=== PATIENT | male | born 1965 | race Caucasian/White ===

== ENCOUNTER 2019-03-18 08:20 | Inpatient (IN) ==
[2019-03-18] MEDS ORDERED: CeFAZolin Syr 2,000MG/20 ML 2,000 MG/20 ML SYRINGE IVPB ONE (08:48)
[2019-03-18] MEDS ORDERED: *HR* Rocuronium Bromide 50 MG/5 ML VIAL ONE (08:51)
[2019-03-18] MEDS ORDERED: Ondansetron 4 MG/2 ML VIAL ONE (08:51)
[2019-03-18] MEDS ORDERED: Dexamethasone 4 MG/ML VIAL ONE (08:51)
[2019-03-18] MEDS ORDERED: *HR* Midazolam HCl 2 MG/2 ML VIAL ONE (08:51)
[2019-03-18] MEDS ORDERED: *HR* FentaNYL (PF) 100 MCG/2 ML VIAL ONE ×2 (08:51→11:34)
[2019-03-18] MEDS ORDERED: *HR* Propofol 200 MG/20 ML VIAL IVP ONE (08:51)
[2019-03-18] MEDS ORDERED: Lidocaine -MPF 4% 5 ML AMPUL ONE (08:51)
[2019-03-18] MEDS ORDERED: Lidocaine -MPF 2% 2 ML VIAL ONE (08:51)
[2019-03-18] MEDS ORDERED: Ringers Solution, Lactated 1,000 ML IVC SCH (09:00)
[2019-03-18] MEDS ORDERED: Famotidine 20 MG/2 ML VIAL IVP ONE (09:25)
[2019-03-18] MEDS ORDERED: Acetaminophen IV 1,000 MG/100 ML INFUS..BTL IVPB ONE (09:25)
[2019-03-18] MEDS ORDERED: traMADol 50 MG TABLET PO ONE (09:25)
[2019-03-18] MEDS ORDERED: Gabapentin 300 MG CAPSULE PO ONE (09:25)
--- NOTE | 2019-03-18 09:28 | Anesthesia Evaluation PreOp ---
Date of Encounter: 03/18/19 Time of Encounter: 09:25 - Past History Planned Operation: Bronchoscopy Robotic Left Upper Lobectomy Cardiac History: HTN Pulmonary History: Denies Any Significant HX FUR DRUMMER History: Denies Any Significant HX Other Medical History: Denies Any Significant HX Alcohol Use: none Drug use: none Medications and Allergies ALPRAZolam [Xanax 0.25 MG Tablet] 0.25 mg PO TID 03/18/19 [History] Cyclobenzaprine [Flexeril] 10 mg PO TID 03/18/19 [History] Lisinopril [Zestril] 5 mg PO DAILY 03/18/19 [History] Allergy/AdvReac Type Severity Reaction Status Date / Time tetracycline [Tetracycline] Allergy Hives Verified 11/12/17 10:28 - Meds/Allergy Pre-op Review Medications Reviewed: Yes Allergies Reviewed: Yes Beta Blockers on Current Med List: No Anesthesia Results - Labs Laboratory Tests 03/08/19 03/08/19 12:43 12:43 Hgb 14.3 Hct 41.4 Plt Count 295 Sodium 140 Potassium 3.8 BUN 14 Creatinine 1.08 - Imaging EKG: report reviewed (SB) Anesthesia Exam O2 Sat Height 1.73 m Height 1.73 m Weight 60.781 kg Weight 60.781 kg O2 Sat by Pulse Oximetry 96 Vital Signs Temp Pulse Resp BP Pulse Ox 98.0 F 83 18 111/73 96 03/18/19 08:44 03/18/19 08:44 03/18/19 08:44 03/18/19 08:44 03/18/19 08:44 Height: 5'9 Weight: 133 lbs NPO (# of Hours): MN Pain Scale: 0 - HEENT Pupil (Motor): Pupils equal, EOMI Mallampati: II Teeth: Normal Oral Opening: Greater than 3 - FUR DRUMMER LOC: Oriented FUR DRUMMER Motor: Normal RUE, Normal LUE, Normal RLE, Normal LLE, Normal Face FUR DRUMMER Sensory: Normal: RUE, LUE, RLE, LLE, Face - Cardiac Rhythm: Regular Murmur: None JVD: No Carotid Bruit: No - Pulmonary Breath Sounds: bilateral Clear Respiratory Effort: Symmetrical Anesthesia Assess/Plan ASA Score: 2 Level of consciousness: Cooperative, Oriented Anesthetic Plan: General Autologous Blood: No Monitoring Plan: Standard Monitors Recovery Plan: PACU (Discussed GA, agrees to proceed)
--- NOTE | 2019-03-18 09:53 | History & Physical Report ---
Date of Encounter: 03/18/19 Time of Encounter: 09:53 24 Hour HP Update - Instructions Instructions: If the History and Physical is less than 30 days old and was completed prior to A.M. admission and or procedure and has NOT been updated on calendar day of procedure please complete this update prior to performing procedure. - Update Patient reports changes in Medical Condition: No Changes in examination, assessment, or condition: No Changes in Medication: No Preop tests/diagnostics Reviewed: Yes Pre-Op MRSA Screen: Negative Surgery Remains Indicated: Yes Consent for Planned Operative Procedure(s) Verified: Yes - Pre-Operative Checklist Preoperative Checklist Indicated: Yes Prophylactic Antibiotic Ordered: Yes Home Medications Include Beta David: No Beta David Taken Today (Day of Surgery): No Beta David Taken Yesterday (Day Prior to Surgery): No Is VTE Prophylaxis Indicated?: Yes
[2019-03-18] MEDS ORDERED: *HR* Succinylcholine 200 MG/10 ML VIAL IVP ONE (10:33)
[2019-03-18] MEDS ORDERED: *HR* OxyCODONE Immed Rel 5 MG TABLET PO PRN (11:14)
[2019-03-18] MEDS ORDERED: *HR* Promethazine 25 MG/ML VIAL IVP PRN ×2 (11:14→17:57)
[2019-03-18] MEDS ORDERED: *HR* HYDROmorphone (PF) 1 MG/ML SYRINGE IVP PRN (11:14)
[2019-03-18] MEDS ORDERED: Ondansetron 4 MG/2 ML VIAL IVP ONE (11:14)
[2019-03-18] MEDS ORDERED: *HR* HYDROMORPHONE 2 MG/ML VIAL ONE (12:28)
[2019-03-18] MEDS ORDERED: Ketorolac 30 MG/ML VIAL ONE (12:51)
--- NOTE | 2019-03-18 13:19 | Operative Note ---
Date of procedure: 03/18/19 Pre-op diagnosis: c34.12 Post-op diagnosis: same Procedure: stagiong bronchoscopy, robotic left upper lobectomy, mediastinal node dissection Anesthesia: GETA Local Anesthetics: 0.5% Sensorcaine HCL SubQ (cc) Co-Surgeon: Jonnathan Szymanski Was there an server assistant present: No Estimated blood loss (cc): 25 Specimen: lobe, nodes [id number] Condition: stable Disposition: PACU Procedure in Detail: Patient was brought to the operating room and placed on the operating table in the supine position. After undergoing general anesthesia with sequential compressive devices on bilateral lower extremities and perioperative antibiotics on board staging bronchoscopy demonstrated normal pink mucosa throughout the tracheobronchial tree without any endoluminal masses or extrinsic compression of the trachea je mainstem lobar bronchi that would preclude surgery. Patient was placed on the operating table in the right lateral decubitus position with care to pad all pressure points. Prepped and draped in the draped in the usual sterile fashion. Thoracoscopy ports were placed in the da Vivi robot was docked. In sequence artery vein bronchus were completed with endothoracic staplers. The inferior pulmonary ligament was mobilized the lobe was removed lymph nodes were removed from stations 9 and 12. There were no nodes 10 or 7 no nodes at 645. On the lobectomy specimen there were numerous peribronchial nodes to be dissected by pathology. Hemostasis and pneumostasis were excellent paravertebral nerve blocks were performed 3. A 28-Chinese chest tube placed through the most anterior thoracoscopy incision were secured in place with a #2 Vicryl suture. The incisions were closed with 0 Vicryl and 4-0 Monocryl subcuticular stitches with dressings consisting of Steri-Strips and sterile gauze. Patient was extubated taken to the recovery room breathing spontaneously and hemodynamically stable.
--- NOTE | 2019-03-18 13:48 | Anesthesia Evaluation Post Op ---
Date of Encounter: 03/18/19 Time of Encounter: 13:47 - Vital Signs Vital Signs: Vital Signs/O2 Sat, Most Current Temp Pulse Resp BP Pulse Ox 97.7 F 79 14 129/75 100 03/18/19 13:18 03/18/19 13:38 03/18/19 13:38 03/18/19 13:38 03/18/19 13:38 - Lungs Lungs: Clear Ascult./Percussion - Airway Airway: Non-obstructed - Cardiovascular Regular Rate - Mental Status Mental Status: Asleep with brisk response to light stimulation - Pain Pain Scale: 0 Pain Scale used: Numeric (1 - 10) - Nausea Vomiting Nausea Vomiting: Not Present - Hydration Hydration: Ice chips, Has not voided - Discharge PostOp Status: Transfer Patient to floor
[2019-03-18] MEDS ORDERED: Naloxone 0.4 MG/ML INJ IVP PRN (14:17)
[2019-03-18] MEDS: ALPRAZolam 0.25 MG TABLET PO SCH ×2 (15:06→20:44)
[2019-03-18] MEDS: 0.9 % Sodium Chloride 1,000 ML IVC SCH (15:06)
[2019-03-18] MEDS: *HR* Heparin 5,000 UNIT/ML VIAL SQ SCH ×2 (15:06→20:43)
[2019-03-18] MEDS: Gabapentin 300 MG CAPSULE PO SCH ×2 (15:06→20:45)
[2019-03-18] MEDS: Ondansetron 4 MG/2 ML VIAL IVP PRN ×2 (15:17→20:44)
[2019-03-18] MEDS: Ipratropium/Albuterol Neb 3 ML IH SCH ×3 (16:05→23:12)
[2019-03-18] MEDS: Ketorolac 15 MG/ML VIAL IVP SCH (17:45)
[2019-03-18] MEDS: Sennosides/Docusate Sodium TABLET PO SCH (20:44)
[2019-03-18] MEDS: Famotidine 20 MG TABLET PO SCH (20:45)
[2019-03-19] MEDS: Ketorolac 15 MG/ML VIAL IVP SCH ×4 (00:17→18:01)
[2019-03-19] MEDS: Ipratropium/Albuterol Neb 3 ML IH SCH ×6 (03:36→23:53)
[2019-03-19] MEDS: 0.9 % Sodium Chloride 1,000 ML IVC SCH ×2 (04:30→17:31)
[2019-03-19] MEDS: *HR* Heparin 5,000 UNIT/ML VIAL SQ SCH ×3 (06:35→19:59)
[2019-03-19] MEDS: Famotidine 20 MG TABLET PO SCH ×2 (07:26→20:00)
[2019-03-19] MEDS: Sennosides/Docusate Sodium TABLET PO SCH ×2 (07:26→20:00)
[2019-03-19] MEDS: ALPRAZolam 0.25 MG TABLET PO SCH ×3 (07:26→20:00)
[2019-03-19] MEDS: Gabapentin 300 MG CAPSULE PO SCH ×3 (07:27→19:59)
--- NOTE | 2019-03-19 09:21 | Cardiothoracic Progress Note ---
Date of Encounter: 03/19/19 Time of Encounter: 09:20 - Assessment and plan (1) Malignant neoplasm of upper lobe, left bronchus or lung Current Visit: Yes Status: Acute The assessment and plan as outlined above was discussed with the patient and/or family members who expressed understanding and agreement. All questions were answered. order labs Vital Signs, Last 4 Hours Temp Pulse Resp BP Pulse Ox 03/19/19 07:42 17 97 03/19/19 06:59 98.3 F 93 18 100/67 99 Oxgyen Flow Rate Oxygen Flow Rate (LPM) 2 Clinical Data, last 8 Hours Output, Chest Tube Drainage 0 Amount [Left Mediastinal #1] Output, Chest Tube Drainage 0 Amount [Left Mediastinal #1] Output, Urine Amount 300 Output, Urine Amount 200 Weight 03/17/19 03/18/19 03/19/19 23:59 23:59 23:59 Weight 60.781 kg - Physical Examination General: Conversant, No Apparent Distress, Well developed, Well nourished HEENT: Atraumatic, Normocephaly Cardiac: Reg Rate and Rhythm, Normal S1 and S2 Incision: No signs of infection, Dry/intact dressing Chest tubes: Minimal drainage, Air leak Lungs: Normal Breath Sounds Neuro: Alert and responsive, No focal deficits noted, Cranial nerves intact, Motor nerves intact Vascular: Normal capillary refill Abdomen: Soft Extremities: No Clubbing, No Cyanosis, No Edema, Normal Pulses - Imaging Chest Xray: image reviewed Consult Discharge Plan - Plan Referrals: Scott Shah MD [Primary Care Provider] -
[2019-03-19 09:44] LABS: Hematocrit 35.5 % (37.5-50.1); Hemoglobin 12.2 g/dL (12.9-16.9); Mean Corpuscular HGB Conc 34.4 g/dL (31.6-35.5); Mean Corpuscular Hemoglobin 30.7 pg (28.0-33.3); Mean Corpuscular Volume 89.2 fL (83.0-100.0); Mean Platelet Volume 8.9 fL (9.4-12.4); Platelet Count 205 K/mcL (140-400); Red Blood Count 3.98 M/mcL (4.19-5.50); Red Cell Distribution Width 12.3 % (11.5-14.5); White Blood Count 8.9 K/mcL (4.3-11.1)
[2019-03-19 10:03] LABS: BUN/Creatinine Ratio 15 (6-26); Blood Urea Nitrogen 20 mg/dL (6-20); Carbon Dioxide 27 mEq/L (23-29); Chloride 104 mEq/L (98-107); Glucose 131 mg/dL (70-105); Magnesium 1.9 mg/dL (1.6-2.6); Osmolality,Calculated 290 (280-300); Potassium 4.1 mEq/L (3.5-5.1); Sodium 138 mEq/L (136-145); eGFR For African Americans > 60 (> 60); eGFR For Non-African Americans 56 (> 60)
[2019-03-20] MEDS: Ketorolac 15 MG/ML VIAL IVP SCH ×4 (00:30→17:06)
[2019-03-20] MEDS: Ipratropium/Albuterol Neb 3 ML IH SCH ×6 (03:44→23:54)
[2019-03-20] MEDS: *HR* Heparin 5,000 UNIT/ML VIAL SQ SCH ×3 (06:20→20:08)
[2019-03-20] MEDS: 0.9 % Sodium Chloride 1,000 ML IVC SCH ×2 (06:21→15:34)
[2019-03-20] MEDS: ALPRAZolam 0.25 MG TABLET PO SCH ×3 (07:25→20:08)
[2019-03-20] MEDS: Gabapentin 300 MG CAPSULE PO SCH ×3 (07:25→20:08)
[2019-03-20] MEDS: Famotidine 20 MG TABLET PO SCH ×2 (07:25→20:07)
[2019-03-20] MEDS: Sennosides/Docusate Sodium TABLET PO SCH ×2 (07:25→20:07)
--- NOTE | 2019-03-20 09:00 | Cardiothoracic Progress Note ---
Date of Encounter: 03/20/19 Time of Encounter: 08:59 - Assessment and plan (1) Malignant neoplasm of upper lobe, left bronchus or lung Current Visit: Yes Status: Acute The assessment and plan as outlined above was discussed with the patient and/or family members who expressed understanding and agreement. All questions were answered. continue chest tube dulcolax supp Vital Signs, Last 4 Hours Temp Pulse Resp BP Pulse Ox 03/20/19 07:51 16 98 03/20/19 07:21 98.2 F 82 16 126/85 99 Oxgyen Flow Rate Oxygen Flow Rate (LPM) 2 Clinical Data, last 8 Hours Output, Chest Tube Drainage 2 Amount [Left Mediastinal #1] Output, Chest Tube Drainage 51 Amount [Left Mediastinal #1] Weight 03/18/19 03/19/19 03/20/19 23:59 23:59 23:59 Weight 60.781 kg 66.1 kg - Physical Examination General: Conversant, No Apparent Distress, Well developed, Well nourished HEENT: Atraumatic Cardiac: Reg Rate and Rhythm, Normal S1 and S2 Incision: No signs of infection, Dry/intact dressing, Open to air Chest tubes: Minimal drainage, Air leak, Other (air leak decreasing ) Lungs: Normal Breath Sounds Neuro: Alert and responsive, No focal deficits noted, Cranial nerves intact, Motor nerves intact Abdomen: Soft, Non-tender, Other (hypoactive ) Extremities: No Clubbing, No Edema - Labs 03/19/19 09:31 03/19/19 09:31 Lab Results, Last 24 hours 03/19/19 03/19/19 09:31 09:31 WBC 8.9 Hgb 12.2 L Hct 35.5 L Plt Count 205 Sodium 138 Potassium 4.1 Chloride 104 Carbon Dioxide 27 BUN 20 Creatinine 1.34 H Glucose 131 H Calcium 9.0 Magnesium 1.9 - Imaging Chest Xray: image reviewed Consult Discharge Plan - Plan Referrals: Scott Shah MD [Primary Care Provider] -
[2019-03-20] MEDS: Bisacodyl 10 MG RECTAL SUPPOSITORY RC SCH (13:52)
[2019-03-20] MEDS: *HR* HYDROcodone/Acet 5/325 mg TABLET PO PRN (20:08)
[2019-03-21] MEDS: Ketorolac 15 MG/ML VIAL IVP SCH ×3 (00:18→11:42)
[2019-03-21] MEDS: Ipratropium/Albuterol Neb 3 ML IH SCH ×5 (03:57→19:47)
[2019-03-21] MEDS: *HR* Heparin 5,000 UNIT/ML VIAL SQ SCH ×3 (06:34→20:33)
[2019-03-21] MEDS: Gabapentin 300 MG CAPSULE PO SCH ×3 (07:42→20:33)
[2019-03-21] MEDS: Famotidine 20 MG TABLET PO SCH ×2 (07:42→20:33)
[2019-03-21] MEDS: Sennosides/Docusate Sodium TABLET PO SCH ×2 (07:42→20:33)
[2019-03-21] MEDS: ALPRAZolam 0.25 MG TABLET PO SCH ×3 (07:42→20:33)
[2019-03-21] MEDS: 0.9 % Sodium Chloride 1,000 ML IVC SCH (07:43)
[2019-03-21] MEDS: Bisacodyl 10 MG RECTAL SUPPOSITORY RC SCH (07:44)
--- NOTE | 2019-03-21 12:41 | Cardiothoracic Progress Note ---
Date of Encounter: 03/21/19 Time of Encounter: 12:39 - Assessment and plan (1) Malignant neoplasm of upper lobe, left bronchus or lung Current Visit: Yes Status: Acute The assessment and plan as outlined above was discussed with the patient and/or family members who expressed understanding and agreement. All questions were answered. continue chest tube stop ivf. stop toradol Vital Signs, Last 4 Hours Temp Pulse Resp BP Pulse Ox 03/21/19 11:12 98.7 F 108 18 106/71 98 03/21/19 11:11 18 97 Oxgyen Flow Rate Oxygen Flow Rate (LPM) 0 Clinical Data, last 8 Hours Output, Chest Tube Drainage 10 Amount [Left Mediastinal #1] Output, Chest Tube Drainage 0 Amount [Left Mediastinal #1] Output, Urine Amount 250 Weight 03/19/19 03/20/19 03/21/19 23:59 23:59 23:59 Weight 66.1 kg 67.9 kg - Physical Examination General: Conversant, No Apparent Distress, Well developed, Well nourished HEENT: Atraumatic, Normocephaly Cardiac: Reg Rate and Rhythm, Normal S1 and S2 Incision: No signs of infection, Dry/intact dressing, Open to air Chest tubes: Minimal drainage, Air leak Lungs: Normal Breath Sounds Neuro: Alert and responsive, No focal deficits noted, Cranial nerves intact, Motor nerves intact Abdomen: Soft, Non-tender, Other (bm after mg citrate yesterday ) Extremities: No Clubbing, No Cyanosis, No Edema - Labs 03/19/19 09:31 03/19/19 09:31 Consult Discharge Plan - Plan Referrals: Jonnathan Szymanski MD [Partnered Physician] - Scott Shah MD [Primary Care Provider] - 03/29/19 9:15 am
[2019-03-22] MEDS: Ipratropium/Albuterol Neb 3 ML IH SCH ×4 (00:01→11:01)
[2019-03-22] MEDS: *HR* HYDROcodone/Acet 5/325 mg TABLET PO PRN (06:57)
[2019-03-22] MEDS: *HR* Heparin 5,000 UNIT/ML VIAL SQ SCH ×2 (07:01→15:08)
[2019-03-22] MEDS: Gabapentin 300 MG CAPSULE PO SCH ×2 (07:32→15:07)
[2019-03-22] MEDS: ALPRAZolam 0.25 MG TABLET PO SCH ×2 (07:33→15:07)
[2019-03-22] MEDS: Sennosides/Docusate Sodium TABLET PO SCH (07:33)
[2019-03-22] MEDS: Famotidine 20 MG TABLET PO SCH (07:33)
[2019-03-22] MEDS: Bisacodyl 10 MG RECTAL SUPPOSITORY RC SCH (07:33)
[2019-03-22 11:01] VITALS: BP 104/72
--- NOTE | 2019-03-22 12:15 | Discharge Summary ---
Orders not resulted at time of discharge: Pending orders 03/18/19 11:33 Surgical Pathology [PTH] Routine Date of Encounter: 03/22/19 Time of Encounter: 12:13 - Discharge Diagnosis (1) Malignant neoplasm of upper lobe, left bronchus or lung Priority: Primary Status: Acute - Hospital Course Hospital course: Mr. Chaney is a 53 year old male - Time Spent with Patient Total time spent providing and/or coordinating discharge services: - Discharge Medications Prescriptions: No Action Lisinopril [Zestril] 5 mg PO DAILY Cyclobenzaprine [Flexeril] 10 mg PO TID ALPRAZolam [Xanax 0.25 MG Tablet] 0.25 mg PO TID Home Medications: ALPRAZolam [Xanax 0.25 MG Tablet] 0.25 mg PO TID 03/18/19 [History] Cyclobenzaprine [Flexeril] 10 mg PO TID 03/18/19 [History] Lisinopril [Zestril] 5 mg PO DAILY 03/18/19 [History] Allergies/Adverse Reactions: Allergy/AdvReac Type Severity Reaction Status Date / Time tetracycline [Tetracycline] Allergy Hives Verified 11/12/17 10:28 Date of admission: 03/18/19 13:46 Primary care physician: Scott Shah MD Procedure(s) Performed: bronchoscopy, left robotic upper lobectomy and lymph node dissection Discharging clinician: Jonnathan Szymanski Anticipated date of discharge: 03/22/19 Physical Examination Vital Signs, Last 4 Hours Temp Pulse Resp BP Pulse Ox 03/22/19 11:03 16 96 03/22/19 10:58 98.2 F 97 16 104/72 96 General: Conversant, No Apparent Distress, Well developed, Well nourished HEENT: Atraumatic, Normocephaly Cardiac: Reg Rate and Rhythm, Normal S1 and S2 Lungs: Normal Breath Sounds Neuro: Alert and responsive, No focal deficits noted, Cranial nerves intact, Motor nerves intact Vascular: Normal capillary refill Abdomen: Soft, Non-tender - Patient Status Disposition: Home, Self-Care Condition: Good Functional capacity at discharge: independent ambulation Overall status at discharge: patient is progressing back to baseline - Discharge Instructions Follow Up With: Jonnathan Szymanski MD [Partnered Physician] - 03/29/19 10:45 am Scott Shah MD [Primary Care Provider] - 03/29/19 7:30 am - Diet and Activity Activity: other (no driving, no lifting more than 20 pounds, change gauze every other day. )
== END 2019-03-22 16:03 | disposition home or self-care (01) | DRG 120 ==
LOC: SAMDAY 08:20 → 2NNU 13:46
PROVIDERS: ADMIT Thoracic Surgery (Cardiothoracic Vascular Surgery); ATTEND Thoracic Surgery (Cardiothoracic Vascular Surgery)

== ENCOUNTER 2019-04-28 06:06 | Inpatient (IN) ==
[2019-04-28] MEDS ORDERED: Albuterol 2.5 MG/3 ML NEBULIZER IH PRN (06:21)
[2019-04-28] MEDS ORDERED: CeFAZolin Syr 2,000MG/20 ML 2,000 MG/20 ML SYRINGE IVPB ONE (06:21)
[2019-04-28] MEDS ORDERED: Ringers Solution, Lactated 1,000 ML IVC SCH (06:30)
[2019-04-28] MEDS ORDERED: *HR* Labetalol 20 MG/4 ML SYRINGE IVP PRN (06:42)
[2019-04-28] MEDS ORDERED: EPHEDrine 50 MG/ML VIAL ONE (06:42)
[2019-04-28] MEDS ORDERED: *HR* HYDROmorphone (PF) 1 MG/ML SYRINGE IVP PRN (06:42)
[2019-04-28] MEDS ORDERED: *HR* Meperidine 25 MG/ML SYRINGE IVP PRN (06:42)
[2019-04-28] MEDS ORDERED: *HR* Promethazine 25 MG/ML VIAL IVP PRN (06:42)
[2019-04-28] MEDS ORDERED: *HR* Phenylephrine 10 MG/ML VIAL ONE (06:42)
[2019-04-28] MEDS ORDERED: Ondansetron ODT 4 MG TAB.RAPDIS SL ONE (06:42)
[2019-04-28] MEDS ORDERED: *HR* Midazolam HCl 2 MG/2 ML VIAL IVP PRN (06:42)
[2019-04-28] MEDS ORDERED: *HR* OxyCODONE Immed Rel 5 MG TABLET PO PRN ×2 (06:42→13:43)
[2019-04-28] MEDS ORDERED: *HR* FentaNYL (PF) 100 MCG/2 ML VIAL IVP PRN (06:42)
[2019-04-28] MEDS ORDERED: diazePAM 5 MG TABLET PO ONE (06:42)
[2019-04-28] MEDS ORDERED: cloNIDine HCl 0.1 MG TABLET PO ONE (06:42)
[2019-04-28] MEDS ORDERED: Acetaminophen IV 1,000 MG/100 ML INFUS..BTL IVPB ONE (06:42)
[2019-04-28] MEDS ORDERED: Ketorolac 30 MG/ML VIAL ONE (06:46)
[2019-04-28] MEDS ORDERED: *HR* Propofol 200 MG/20 ML VIAL IVP ONE (06:47)
[2019-04-28] MEDS ORDERED: Lidocaine -MPF 2% 2 ML VIAL ONE (06:48)
[2019-04-28] MEDS ORDERED: Dexamethasone 4 MG/ML VIAL ONE (06:48)
[2019-04-28] MEDS ORDERED: Ondansetron 4 MG/2 ML VIAL ONE (06:48)
[2019-04-28] MEDS ORDERED: Lidocaine -MPF 4% 5 ML AMPUL ONE (06:48)
[2019-04-28] MEDS ORDERED: *HR* Succinylcholine 200 MG/10 ML VIAL IVP ONE (06:48)
[2019-04-28] MEDS ORDERED: *HR* Rocuronium Bromide 50 MG/5 ML VIAL ONE (06:48)
[2019-04-28] MEDS ORDERED: *HR* FentaNYL (PF) 100 MCG/2 ML VIAL ONE (08:34)
[2019-04-28] MEDS ORDERED: Naloxone 0.4 MG/ML INJ IVP PRN (10:08)
[2019-04-28] MEDS ORDERED: Ondansetron 4 MG/2 ML VIAL IVP PRN (10:08)
[2019-04-28] MEDS: *HR* HYDROcodone/Acet 5/325 mg TABLET PO PRN ×2 (10:28→17:13)
[2019-04-28] MEDS: 0.9 % Sodium Chloride 1,000 ML IVC SCH (11:47)
[2019-04-28] MEDS: Ketorolac 15 MG/ML VIAL IVP SCH ×3 (11:48→23:59)
[2019-04-28] MEDS: *HR* OxyCODONE Immed Rel 5 MG TABLET PO PRN ×2 (14:24→20:23)
[2019-04-28] MEDS: *HR* Heparin 5,000 UNIT/ML VIAL SQ SCH ×2 (15:03→22:40)
[2019-04-28] MEDS: ALPRAZolam 0.25 MG TABLET PO SCH ×2 (15:03→20:24)
[2019-04-28] MEDS: Gabapentin 300 MG CAPSULE PO SCH ×2 (15:04→20:24)
[2019-04-28] MEDS: Ipratropium/Albuterol Neb 3 ML IH SCH ×4 (16:29→23:16)
[2019-04-28] MEDS: Famotidine 20 MG TABLET PO SCH (20:24)
[2019-04-28] MEDS: Sennosides/Docusate Sodium TABLET PO SCH (20:24)
[2019-04-29] MEDS: 0.9 % Sodium Chloride 1,000 ML IVC SCH ×2 (01:21→11:13)
[2019-04-29 02:42] LABS: Hematocrit 36.8 % (37.5-50.1); Hemoglobin 12.7 g/dL (12.9-16.9); Mean Corpuscular HGB Conc 34.5 g/dL (31.6-35.5); Mean Corpuscular Hemoglobin 30.7 pg (28.0-33.3); Mean Corpuscular Volume 88.9 fL (83.0-100.0); Mean Platelet Volume 8.9 fL (9.4-12.4); Platelet Count 275 K/mcL (140-400); Red Blood Count 4.14 M/mcL (4.19-5.50); Red Cell Distribution Width 12.1 % (11.5-14.5); White Blood Count 9.6 K/mcL (4.3-11.1)
[2019-04-29 03:01] LABS: BUN/Creatinine Ratio 14 (6-26); Blood Urea Nitrogen 17 mg/dL (6-20); Calcium 8.9 mg/dL (8.6-10.3); Carbon Dioxide 24 mEq/L (23-29); Chloride 103 mEq/L (98-107); Glucose 126 mg/dL (70-105); Magnesium 1.8 mg/dL (1.6-2.6); Osmolality,Calculated 283 (280-300); Potassium 4.6 mEq/L (3.5-5.1); Sodium 135 mEq/L (136-145); eGFR For African Americans > 60 (> 60); eGFR For Non-African Americans > 60 (> 60)
[2019-04-29] MEDS: Ipratropium/Albuterol Neb 3 ML IH SCH ×6 (03:44→23:17)
[2019-04-29] MEDS: *HR* Heparin 5,000 UNIT/ML VIAL SQ SCH ×3 (06:35→21:40)
[2019-04-29] MEDS: Ketorolac 15 MG/ML VIAL IVP SCH ×3 (06:35→17:17)
[2019-04-29] MEDS: ALPRAZolam 0.25 MG TABLET PO SCH ×3 (07:28→21:40)
[2019-04-29] MEDS: Sennosides/Docusate Sodium TABLET PO SCH ×2 (07:28→21:40)
[2019-04-29] MEDS: *HR* OxyCODONE Immed Rel 5 MG TABLET PO PRN (07:28)
[2019-04-29] MEDS: Gabapentin 300 MG CAPSULE PO SCH ×3 (07:29→21:39)
[2019-04-29] MEDS: Famotidine 20 MG TABLET PO SCH ×2 (07:29→21:40)
[2019-04-29] MEDS: *HR* HYDROcodone/Acet 5/325 mg TABLET PO PRN (21:39)
[2019-04-30] MEDS: Ketorolac 15 MG/ML VIAL IVP SCH ×2 (00:16→06:06)
[2019-04-30] MEDS: Ipratropium/Albuterol Neb 3 ML IH SCH ×4 (03:42→19:00)
[2019-04-30] MEDS: *HR* Heparin 5,000 UNIT/ML VIAL SQ SCH (06:06)
[2019-04-30] MEDS: Famotidine 20 MG TABLET PO SCH (07:22)
[2019-04-30] MEDS: ALPRAZolam 0.25 MG TABLET PO SCH (07:22)
[2019-04-30] MEDS: Sennosides/Docusate Sodium TABLET PO SCH (07:22)
[2019-04-30] MEDS: Gabapentin 300 MG CAPSULE PO SCH (07:22)
[2019-04-30 19:30] VITALS: BP 111/67
== END 2019-04-30 12:06 | disposition home or self-care (01) | DRG 121 ==
LOC: SAMDAY 06:06 → ICNU 10:06 → 2NNU 17:16
PROVIDERS: ADMIT Thoracic Surgery (Cardiothoracic Vascular Surgery); ATTEND Thoracic Surgery (Cardiothoracic Vascular Surgery)